=== PATIENT | male | born 1960 | race Caucasian/White ===

== ENCOUNTER 2018-11-07 00:10 | Observation (INO) | payer OTHER ==
[2018-11-07] MEDS ORDERED: ONDANSETRON 4 MG INJ (00:33)
[2018-11-07] MEDS: ONDANSETRON 4 MG INJ IV ×2 (00:34→00:46)
[2018-11-07] MEDS: hydrALAzine 20 MG INJ IV ×2 (00:43→04:31)
[2018-11-07 00:47] LABS: ADD MAN DIFF? NO
[2018-11-07 00:49] LABS: URINE BLOOD (Dip) POC Negative (NEGATIVE); URINE KETONES (Dip) POC Negative (NEGATIVE); URINE LEUKOCYTE EST (Dip) POC Negative (NEGATIVE); URINE NITRITE (Dip) POC Negative (NEGATIVE); URINE TOTAL PROTEIN POC Negative (NEGATIVE)
[2018-11-07 00:50] LABS: BASOPHIL # 0.1 10^3/ul (0.0-0.1); BASOPHILS % 0.5 % (0.0-2.0); EOSINOPHILS # 0.1 10^3/ul (0.0-0.5); EOSINOPHILS % 1.3 % (0.0-7.0); HEMATOCRIT 42.5 % (42.0-52.0); HEMOGLOBIN 14.7 g/dl (14.0-18.0); LYMPHOCYTES % 29.7 % (15.0-51.0); MEAN CORPUSCULAR HEMOGLOBIN 29.6 pg (29.0-33.0); MEAN CORPUSCULAR HGB CONC 34.6 g/dl (32.0-37.0); MEAN CORPUSCULAR VOLUME 85.7 fl (82.0-101.0); MEAN PLATELET VOLUME 9.8 fl (7.4-10.4); MONOCYTE # 0.6 10^3/ul (0.3-0.9); MONOCYTES % 5.8 % (0.0-11.0); NEUTROPHIL # 6.2 10^3/ul (1.6-7.5); NEUTROPHILS % 62.1 % (39.0-77.0); PLATELET COUNT 251 10^3/UL (140-415); RED BLOOD COUNT 4.96 10^6/ul (4.70-6.10); RED CELL DISTRIBUTION WIDTH 13.2 % (11.5-14.5)
[2018-11-07 01:08] LABS: INR 0.92; PROTIME 12.5 Sec (11.9-14.9)
[2018-11-07 01:09] LABS: ANION GAP 14 (5-13); BLOOD UREA NITROGEN 15 mg/dl (7-20); CALCIUM 9.3 mg/dl (8.4-10.2); CARBON DIOXIDE 24 mmol/L (21-31); CHLORIDE 101 mmol/L (97-110); CREATININE 0.67 mg/dl (0.61-1.24); Estimated GFR > 60 mL/min (>60); GLUCOSE 221 mg/dl (70-220); POTASSIUM 4.2 mmol/L (3.5-5.1); SODIUM 139 mmol/L (135-144)
[2018-11-07] MEDS ORDERED: ONDANSETRON 4 MG INJ IV (04:00)
[2018-11-07] MEDS ORDERED: ACETAMINOPHEN 325 MG TAB PO (04:00)
[2018-11-07] MEDS: AMLODIPINE 5 MG TAB PO ×2 (04:31→09:09)
[2018-11-07] MEDS: morphine 2 MG INJ IV (05:30)
[2018-11-07 05:59] LABS: ADD MAN DIFF? NO
[2018-11-07 06:01] LABS: BASOPHIL # 0.1 10^3/ul (0.0-0.1); BASOPHILS % 0.5 % (0.0-2.0); EOSINOPHILS # 0.1 10^3/ul (0.0-0.5); EOSINOPHILS % 0.7 % (0.0-7.0); HEMATOCRIT 43.2 % (42.0-52.0); HEMOGLOBIN 14.8 g/dl (14.0-18.0); LYMPHOCYTES # 1.8 10^3/ul (0.8-2.9); LYMPHOCYTES % 18.4 % (15.0-51.0); MEAN CORPUSCULAR HEMOGLOBIN 28.8 pg (29.0-33.0); MEAN CORPUSCULAR HGB CONC 34.3 g/dl (32.0-37.0); MEAN CORPUSCULAR VOLUME 84.2 fl (82.0-101.0); MEAN PLATELET VOLUME 9.8 fl (7.4-10.4); MONOCYTE # 0.5 10^3/ul (0.3-0.9); MONOCYTES % 4.9 % (0.0-11.0); NEUTROPHIL # 7.3 10^3/ul (1.6-7.5); PLATELET COUNT 242 10^3/UL (140-415); RED BLOOD COUNT 5.13 10^6/ul (4.70-6.10); RED CELL DISTRIBUTION WIDTH 13.4 % (11.5-14.5)
[2018-11-07 06:01] LABS: WHITE BLOOD COUNT 9.7 10^3/ul (4.8-10.8)
[2018-11-07 06:25] LABS: ANION GAP 16 (5-13); BLOOD UREA NITROGEN 13 mg/dl (7-20); CALCIUM 9.5 mg/dl (8.4-10.2); CARBON DIOXIDE 22 mmol/L (21-31); CHLORIDE 99 mmol/L (97-110); CHOL/HDL RATIO 7.7 RATIO; CHOLESTEROL 241 mg/dl (100-200); CREATININE 0.56 mg/dl (0.61-1.24); Estimated GFR > 60 mL/min (>60); GLUCOSE 201 mg/dl (70-220); HDL CHOLESTEROL 31 mg/dl (28-71); SODIUM 137 mmol/L (135-144)
[2018-11-07 06:41] LABS: LDL CHOLESTEROL,CALCULATED 16 mg/dl; TRIGLYCERIDES 969 mg/dl (0-149)
[2018-11-07 07:45] LABS: HEMOGLOBIN A1C 7.7 % (0-5.9)
[2018-11-07] MEDS: LISINOPRIL 10 MG TAB PO (07:53)
[2018-11-07] MEDS ORDERED: GLUCOSE GEL 15 GRAM TUBE PO ×2 (08:00)
[2018-11-07] MEDS ORDERED: GLUCOSE GEL 15 GRAM TUBE BUCCAL (08:00)
[2018-11-07] MEDS ORDERED: GLUCAGON 1 MG INJ IM (08:00)
[2018-11-07] MEDS ORDERED: DEXTROSE 50% 50 ML SYRINGE IV ×2 (08:00)
[2018-11-07] MEDS: INSULIN ASPART [NOVOLOG] 3 ML PEN SC ×2 (09:33→12:14)
[2018-11-08] MEDS ORDERED: ACCU-CHEK XX (02:00)
[2018-11-08] MEDS ORDERED: LISINOPRIL 10 MG TAB PO (09:00)
== END 2018-11-07 14:16 | disposition home or self-care (01) ==
LOC: E/R 00:10 → 6WM 02:15
DX: I16.0 Hypertensive urgency (principal); I10 Essential (primary) hypertension; E11.65 Type 2 diabetes mellitus with hyperglycemia; E78.1 Pure hyperglyceridemia; E78.5 Hyperlipidemia, unspecified; F17.200 Nicotine dependence, unspecified, uncomplicated; Z91.14 Patient's other noncompliance with medication regimen; E66.9 Obesity, unspecified; Z68.29 Body mass index [BMI] 29.0-29.9, adult
CPT/HCPCS: 36415; 70450; 80048; 80061; 81003; 82962; 83036; 85025; 85610; 85730; 93005; 96374; 96375; 99285-25; G0378